=== PATIENT | male | born 1955 | race Caucasian/White ===

== ENCOUNTER → 2019-06-29 | Outpatient (CLI) | payer OTHER | END | disposition home or self-care (01) | LOC: LAB SHORT 10:47 → PLD 10:47 | DX: C44.712 Basal cell carcinoma of skin of right lower limb, including hip (principal) | CPT/HCPCS: 88305 ==

== ENCOUNTER → 2019-07-11 | Outpatient (CLI) | payer OTHER | END | disposition home or self-care (01) | LOC: PLD 15:12 → LAB SHORT 15:12 | DX: C44.712 Basal cell carcinoma of skin of right lower limb, including hip (principal) | CPT/HCPCS: 88305 ==

== ENCOUNTER → 2021-04-16 | Outpatient (CLI) | payer OTHER, MEDICARE | END | disposition home or self-care (01) | LOC: LAB SHORT 11:05 | DX: C44.612 Basal cell carcinoma of skin of right upper limb, including shoulder (principal); C44.619 Basal cell carcinoma of skin of left upper limb, including shoulder; D48.5 Neoplasm of uncertain behavior of skin | CPT/HCPCS: 88305 ==

== ENCOUNTER → 2021-04-22 | Outpatient (CLI) | payer OTHER, MEDICARE | END | disposition home or self-care (01) | LOC: LAB SHORT 14:56 | DX: D03.61 Melanoma in situ of right upper limb, including shoulder (principal) | CPT/HCPCS: 88305; 88342 ==

== ENCOUNTER → 2021-08-05 | Outpatient (CLI) | payer OTHER | END | disposition home or self-care (01) | LOC: PLD 10:57 → LAB SHORT 10:57 | DX: D22.5 Melanocytic nevi of trunk (principal) | CPT/HCPCS: 88305 ==

== ENCOUNTER → 2021-10-02 | Outpatient (CLI) | payer OTHER | END | disposition home or self-care (01) | LOC: PLD 14:56 → LAB SHORT 14:56 | DX: D22.5 Melanocytic nevi of trunk (principal) | CPT/HCPCS: 88305 ==

== ENCOUNTER → 2022-03-06 | Outpatient (CLI) | payer OTHER | END | disposition home or self-care (01) | LOC: LAB SHORT 11:09 | DX: C44.219 Basal cell carcinoma of skin of left ear and external auricular canal (principal) | CPT/HCPCS: 88305 ==

== ENCOUNTER → 2022-07-16 | Outpatient (CLI) | payer OTHER | LOC: LAB SHORT 11:41 → PLD 11:41 → LAB 11:41 | DX: D48.5 Neoplasm of uncertain behavior of skin (principal) | CPT/HCPCS: 88305 ==

== ENCOUNTER 2025-03-08 11:53 | Day surgery (SDC) | payer OTHER ==
[~2025-03-08] VITALS: Ht 177.8 cm; Wt 85.0 kg
[2025-03-08 12:51] VITALS: BP 145/86
--- NOTE | 2025-03-08 13:41 | NUR ---
History, Chart, Medications and Allergies reviewed before start of procedure.Patient confirms NPO status and agrees with scheduled surgery. Pre-Op teaching done. Pt verbalizes understanding. Patient reports completing Chlorhexadine shower X2 prior to admission to hospital.
[2025-03-08] MEDS ORDERED: Bupivacaine HCl 2.5 MG/ML 10ML P/F Injection ONE (13:52)
[2025-03-08] MEDS ORDERED: Lidocaine HCL 1% 10 ML MDV ONE (13:52)
[2025-03-08] MEDS ORDERED: Midazolam HCl 1MG / ML 2ML Vial ONE (14:04)
[2025-03-08] MEDS ORDERED: FentaNYL Citrate 50 MCG/ML 2 ML Injection ONE (14:04)
[2025-03-08] MEDS ORDERED: HYDROmorphone HCl/Pf 1MG SYR IV PRN ×2 (14:05)
[2025-03-08] MEDS ORDERED: FentaNYL Citrate 50 MCG/ML 2 ML Injection IV PRN ×2 (14:05)
[2025-03-08] MEDS ORDERED: Ondansetron HCl 2 MG / ML 2ML Vial IV PRN (14:10)
[2025-03-08 15:16] VITALS: BP 128/79
[2025-03-08 15:20] VITALS: BP 130/92
[2025-03-08 15:25] VITALS: BP 131/80
[2025-03-08 15:30] VITALS: BP 127/83
[2025-03-08] MEDS ORDERED: HYDROcodone 5-APAP 325 TAB PO PRN (15:30)
[2025-03-08 15:38] VITALS: BP 137/92
--- NOTE | 2025-03-08 15:57 | NUR ---
Discharge instructions reviewed with patient. Patient verbalizes understanding. Copy given to patient to take home. Patient States Post-Procedure ride home has been arranged. Discharged via wheelchair to private car for ride home.
== END 2025-03-08 16:17 | disposition home or self-care (01) ==
LOC: ORSCMMR 11:53
PROVIDERS: Orthopaedic Surgery
PROC: 0PST34Z Reposition Right Finger Phalanx with Internal Fixation Device, Percutaneous Approach (ICD-10-PCS; principal; 2025-03-08 14:00)
DX: S62.616A Displaced fracture of proximal phalanx of right little finger, initial encounter for closed fracture (principal); W18.30XA Fall on same level, unspecified, initial encounter
CPT/HCPCS: J2003; J2250; J2704; J3010; J3373; J7050; J7120